=== PATIENT | female | born 1990 | race Caucasian/White ===

== ENCOUNTER 2016-07-29 21:44 | Inpatient (IN) | payer OTHER ==
[~2016-07-29 21:44] MED LIST: Misoprostol 25 MCG (1/4 of 100 MCG) Tab VAG PRN
[2016-07-29] MEDS ORDERED: Lidocaine 1% 50 ML MDV INJECT PRN (22:16)
[2016-07-29] MEDS ORDERED: Butorphanol 1 MG/ML SDV IVPUSH PRN (22:16)
[2016-07-29] MEDS ORDERED: Sodium Chloride 0.9% 2.5 ML Syringe FLUSH PRN (22:16)
[2016-07-29] MEDS ORDERED: Water For Irrigation,Sterile 1,000 ML Container IRR PRN (22:16)
[2016-07-29] MEDS ORDERED: Methylergonovine 0.2 MG/1 ML Amp IM PRN (22:16)
[2016-07-29] MEDS ORDERED: Nalbuphine 10 MG/1 ML Vial IVPUSH PRN (22:16)
[2016-07-29] MEDS ORDERED: Terbutaline 1 MG/ML SDV SUBCUT PRN (22:16)
[2016-07-29] MEDS ORDERED: Sodium Chloride 0.9% 10 ML Syringe FLUSH PRN (22:16)
[2016-07-29] MEDS ORDERED: Carboprost Tromethamine 250 MCG/1 ML Amp IM PRN (22:16)
[2016-07-29] MEDS ORDERED: Misoprostol 200 MCG Tab PO PRN (22:16)
[2016-07-29] MEDS ORDERED: Ampicillin 2 GM in Sodium Chloride 0.9% 100 ML IV ONE (22:30)
[2016-07-29] MEDS ORDERED: Misoprostol 25 MCG (1/4 of 100 MCG) Tab VAG SCH (22:30)
[2016-07-29] MEDS ORDERED: Oxytocin/Lactated Ringers 30 UNIT/500 ML BAG IV SCH (22:30)
[2016-07-29] MEDS: Lactated Ringers 1,000 ML IV SCH (22:41)
[2016-07-30] MEDS: Ampicillin 1 GM in Sodium Chloride 0.9% 50 ML IV SCH ×5 (00:59→10:39)
[2016-07-30] MEDS: Lactated Ringers 1,000 ML IV SCH ×4 (07:45→16:01)
[2016-07-30] MEDS ORDERED: Ropivacaine HCl/PF 100 ML ONE (08:15)
[2016-07-30] MEDS ORDERED: fentaNYL 100 MCG/2 ML SDV ONE (08:15)
--- NOTE | 2016-07-30 08:19 | PCM.PREANE ---
Preanesthetic Assessment - Anesthesia/Transfusion/Family Hx Anesthesia History: Prior Anesthesia Without Reaction Transfusion History: Prior Transfusion Without Reaction - Review of Systems General: No Symptoms Pulmonary: No Symptoms Cardiovascular: No Symptoms Gastrointestinal: No symptoms Neurological: No Symptoms Other: Reports: None - Physical Assessment Pulse: 105 O2 Sat by Pulse Oximetry: 99 Respiratory Rate: 26 Blood Pressure: 160/100 Height: 5 ft 9 in Weight: 74.389 kg ASA Class: 2 Mental Status: Alert & Oriented x3 Airway Class: Mallampati = 2 Dentition: Reports: Normal Dentition Thyro-Mental Finger Breadths: 3 Mouth Opening Finger Breadths: 3 ROM/Head Extension: Full Lungs: Clear to auscultation, Normal respiratory effort Cardiovascular: Regular Rate, Regular Rhythm - Lab Values: Laboratory Last Values WBC 9.24 K/uL (4.0-11.0) 07/29/16 22:34 RBC 4.03 M/uL (4.30-5.90) L 07/29/16 22:34 Hgb 12.0 g/dL (12.0-16.0) 07/29/16 22:34 Hct 37.1 % (36.0-46.0) 07/29/16 22:34 MCV 92.1 fL (80.0-98.0) 07/29/16 22:34 MCH 29.8 pg (27.0-32.0) 07/29/16 22:34 MCHC 32.3 g/dL (31.0-37.0) 07/29/16 22:34 RDW Std Deviation 44.2 fl (28.0-62.0) 07/29/16 22:34 RDW Coeff of Cruz 13 % (11.0-15.0) 07/29/16 22:34 Plt Count 162 K/uL (150-400) 07/29/16 22:34 MPV 11.00 fL (7.40-12.00) 07/29/16 22:34 Nucleated RBC % 0.0 /100WBC 07/29/16 22:34 Nucleated RBCs # 0 K/uL 07/29/16 22:34 Blood Type O POSITIVE 07/29/16 22:34 Antibody Screen NEGATIVE 07/29/16 22:34 - Allergies Allergies/Adverse Reactions: Allergies Allergy/AdvReac Type Severity Reaction Status Date / Time No Known Allergies Allergy Verified 07/29/16 22:16 - Acknowledgements Anesthesia Type Planned: Epidural Pt an Appropriate Candidate for the Planned Anesthesia: Yes Alternatives and Risks of Anesthesia Discussed w Pt/Guardian: Yes Pt/Guardian Understands and Agrees with Anesthesia Plan: Yes PreAnesthesia Questionnaire HEENT History: Reports: None Cardiovascular History: Reports: None Respiratory History: Reports: None Gastrointestinal History: Reports: GERD Genitourinary History: Reports: None CAUSTIC MIXER History: Reports: : 1 Para: 0 LMP (Approximate): Musculoskeletal History: Reports: None Neurological History: Reports: None Psychiatric History: Reports: None Endocrine/Metabolic History: Reports: None Hematologic History: Reports: None Immunologic History: Reports: None Oncologic (Cancer) History: Reports: None - Past Surgical History HEENT Surgical History: Reports: Oral surgery ([place] teeth extraction), Tonsillectomy - CURRENT (IN HOUSE) MEDS Current Meds: Current Medications Butorphanol Tartrate (Stadol) 1 mg IVPUSH ASDIRECTED PRN PRN Reason: Pain Stop: 07/30/16 22:17 Last Admin: 07/30/16 07:58 Dose: 1 mg Carboprost Tromethamine (Hemabate Ds) 250 mcg IM ASDIRECTED PRN PRN Reason: Post Hemorrhage Ampicillin Sodium 1 gm/ Sodium (Chloride) 50 mls @ 100 mls/hr IV Q4H IGGY Last Admin: 07/30/16 06:40 Dose: 100 mls/hr Lactated Ringer's (Ringers, Lactated) 1,000 mls @ 150 mls/hr IV ASDIRECTED IGGY Last Admin: 07/30/16 07:45 Dose: 150 mls/hr Oxytocin/Lactated Ringer's (Pitocin In Lr 30 Units/500 Ml) 30 unit in 500 mls @ 2 mls/hr IV TITRATE IGGY; 2 MUNITS/MIN PRN Reason: Protocol Lidocaine HCl (Xylocaine 1%) 50 ml INJECT .ONCE PRN PRN Reason: Laceration repair Methylergonovine Maleate (Methergine) 0.2 mg IM ASDIRECTED PRN PRN Reason: Post Hemorrhage Misoprostol (Cytotec) 25 mcg VAG .ONCE IGGY Last Admin: 07/29/16 23:07 Dose: 25 mcg Misoprostol (Cytotec) 25 mcg VAG Q6H PRN PRN Reason: Cervical Ripening Stop: 07/30/16 22:31 Last Admin: 07/30/16 05:04 Dose: 25 mcg Misoprostol (Cytotec) 200 mcg PO .ONCE PRN PRN Reason: Post Hemorrhage Nalbuphine HCl (Nubain) 10 mg IVPUSH ASDIRECTED PRN PRN Reason: Pain (severe 7-10) Stop: 07/31/16 22:17 Sodium Chloride (Saline Flush) 10 ml FLUSH ASDIRECTED PRN PRN Reason: Keep Vein Open Sodium Chloride (Saline Flush) 2.5 ml FLUSH ASDIRECTED PRN PRN Reason: Keep Vein Open Sterile Water (Sterile Water For Irrigation) 1,000 ml IRR ASDIRECTED PRN PRN Reason: delivery Terbutaline Sulfate (Brethine) 0.25 mg SUBCUT ASDIRECTED PRN PRN Reason: Tacysystole Discontinued Medications Ampicillin Sodium 2 gm/ Sodium (Chloride) 100 mls @ 200 mls/hr IV ONETIME ONE Stop: 07/29/16 22:59 Last Admin: 07/29/16 22:46 Dose: 200 mls/hr Oxytocin/Lactated Ringer's (Pitocin In Lr 30 Units/500 Ml) 30 unit in 500 mls @ 500 mls/hr IV TITRATE IGGY; 500 MUNITS/MIN PRN Reason: Protocol Stop: 07/29/16 23:29
[2016-07-30] MEDS: Oxytocin/Lactated Ringers 30 UNIT/500 ML BAG IV SCH ×3 (12:01→14:49)
[2016-07-30] MEDS ORDERED: Witch Hazel Medicated Pads 40/Jar TOP PRN (12:24)
[2016-07-30] MEDS ORDERED: Lanolin 100% Cream 7 GM Tube TOP PRN (12:24)
[2016-07-30] MEDS ORDERED: Methylergonovine 0.2 MG/1 ML Amp IM PRN (12:24)
[2016-07-30] MEDS ORDERED: Benzocaine/Menthol 20%-0.5% Spray 78 GM Cannister TOP PRN (12:24)
[2016-07-30] MEDS ORDERED: oxyCODONE 5 MG Tab PO PRN (12:24)
[2016-07-30] MEDS ORDERED: Bisacodyl 10 MG Supp RECTAL PRN (12:24)
[2016-07-30] MEDS ORDERED: Oxytocin/Lactated Ringers 30 UNIT/500 ML BAG ONE ×2 (14:46→15:44)
[2016-07-30] MEDS ORDERED: Carboprost Tromethamine 250 MCG/1 ML Amp ONE (15:54)
[2016-07-30] MEDS ORDERED: ceFAZolin 2 GM in Premix Bag 1 BAG IV ONE (15:58)
[2016-07-30] MEDS ORDERED: Lidocaine 2% 5 ML SDV ONE (16:06)
[2016-07-30] MEDS ORDERED: Midazolam 1 MG/ML 2 ML SDV ONE (16:06)
[2016-07-30] MEDS ORDERED: Propofol 200 MG/20 ML SDV ONE (16:06)
[2016-07-30] MEDS ORDERED: fentaNYL 250 MCG/5 ML SDV ONE (16:06)
[2016-07-30] MEDS ORDERED: Ondansetron 4 MG/2 ML SDV ONE (16:06)
[2016-07-30] MEDS ORDERED: Rocuronium 10 MG/ML 10 ML Syringe ONE (16:06)
[2016-07-30] MEDS ORDERED: Phenylephrine/Normal Saline 100 MCG/ML 10 ML Syringe ONE (16:06)
[2016-07-30] MEDS ORDERED: Succinylcholine/Normal Saline 200 MG/10 ML Syringe ONE (16:06)
[2016-07-30] MEDS ORDERED: Sodium Chloride 0.9% 0 ML ONE (16:17)
[2016-07-30] MEDS ORDERED: ceFAZolin 1 GM Vial ONE (16:17)
[2016-07-30] MEDS ORDERED: ePHEDrine 50 MG/ML SDV ONE (16:18)
[2016-07-30] MEDS ORDERED: Phenylephrine 1% 10 MG/ML SDV ONE (16:19)
[2016-07-30] MEDS ORDERED: Furosemide 40 MG/4 ML VIAL ONE (16:54)
--- NOTE | 2016-07-30 17:33 | PCM.OPNOTE ---
- General Post-Op/Procedure Note Date of Surgery/Procedure: 07/30/16 Operative Procedure(s): uterine curettage, evacuation of rectovaginal hematoma with hemostasis, repair of 2nd degree laceration Findings: Uterus was firm 14 week size, good uterine cry was felt. There was a 5 cm mass on the posterior vagina, which was a hematoma in the rectovaginal septum, it had ruptured through the vagina transversely approximately 5 cm cephalad from the introitus. The second degree laceration which had been repaired was opened and explored, and re-repaired. It had not connection to the hematoma. Pre Op Diagnosis: hemorrhage Post-Op Diagnosis: rectovaginal hematoma Anesthesia Technique: General ET tube Primary Surgeon: Mallory Cuevas Anesthesia Provider: Jeovanny Ruiz Pathology: none Fluid Replacement, Intraop: 1,500 (2 Units PRBC) EBL in mLs: 100 (800 prior to procedure) Complications: None Known Condition: Good
[2016-07-30] MEDS ORDERED: fentaNYL 100 MCG/2 ML SDV IVPUSH PRN (17:45)
--- NOTE | 2016-07-30 17:46 | PCM.POSTAN ---
POST ANESTHESIA ASSESSMENT - MENTAL STATUS Mental Status: alert, oriented - VITAL SIGNS Pulse Rate: 118 SaO2: 98 Resp Rate: 22 Blood Pressure: 135/75 - RESPIRATORY Respiratory Status: respiratory rate WNL, airway patent, O2 saturation stable - CARDIOVASCULAR CV Status: pulse rate WNL, blood pressure stable - GASTROINTESTINAL GI Status: no symptoms - POST OP HYDRATION Hydration Status: adequate & stable
[2016-07-30] MEDS: Ibuprofen 800 MG Tab PO PRN (18:31)
[2016-07-30] MEDS ORDERED: Acetaminophen 500 MG Tab PO PRN (20:08)
[2016-07-30] MEDS: Docusate Sodium 100 MG Cap PO PRN (20:32)
--- NOTE | 2016-07-30 21:01 | PCM.SN ---
- Free Text/Narrative Note: PPD0 after TSVD with hematoma , pain is mild, she is still a bit nauseated, minimal lochia fundus firm, nontender, vaginal packing removed, no vaginal bleeding Hgb 11.3 Continue care, recheck hemoglobin in am.
--- NOTE | 2016-07-30 22:48 | PCM.SN ---
- Free Text/Narrative Note: Pt has mild pain, using non-narcotics at this time as pt says narcotics "make me sick". Hgb 11.3 after 2 units PRBC. Pt did require vasoactive support intra -op, VSS at this time.
[2016-07-31] MEDS: Ibuprofen 800 MG Tab PO PRN ×3 (00:32→16:32)
--- NOTE | 2016-07-31 07:24 | PCM.PNPP ---
- General Info Date of Service: 07/31/16 Functional Status: Reports: pain controlled, tolerating diet, ambulating. Denies: urinating (catheter still in place) - Review of Systems General: Reports: No Symptoms HEENT: Reports: no symptoms Pulmonary: Reports: no symptoms Cardiovascular: Reports: No Symptoms Gastrointestinal: Reports: No symptoms Genitourinary: Reports: no symptoms Musculoskeletal: Reports: no symptoms Skin: Reports: no symptoms Neurological: Reports: No Symptoms Psychiatric: Reports: no symptoms - General Info Date of Service: 07/31/16 - Patient Data Vital Signs - most recent: Last Vital Signs Temp 36.7 C 07/30/16 19:58 Pulse 98 07/31/16 03:56 Resp 16 07/31/16 03:56 BP 115/58 L 07/31/16 03:56 Pulse Ox 97 07/31/16 03:56 Weight - most recent: 74.389 kg I&O - last 24 hours: Intake & Output 07/30/16 07/31/16 07/31/16 22:59 06:59 14:59 Intake Total 3200 Output Total 600 Balance 2600 Lab Results - last 24 hrs: Laboratory Results - last 24 hr 07/29/16 07/30/16 07/30/16 Range/Units 22:34 16:04 16:04 Hgb (12.0-16.0) g/dL Hct (36.0-46.0) % INR (0.86-1.11) APTT 22.2 (18.6-31.3) SEC Fibrinogen 328 (215-411) mg/dL Blood Type O POSITIVE Antibody Screen NEGATIVE Crossmatch See Detail 07/30/16 07/30/16 07/30/16 Range/Units 16:04 16:04 20:14 Hgb 9.3 L 11.1 L (12.0-16.0) g/dL Hct 28.6 L 32.8 L (36.0-46.0) % INR 0.97 (0.86-1.11) APTT (18.6-31.3) SEC Fibrinogen (215-411) mg/dL Blood Type Antibody Screen Crossmatch 07/31/16 Range/Units 05:10 Hgb 8.9 L (12.0-16.0) g/dL Hct 26.6 L (36.0-46.0) % INR (0.86-1.11) APTT (18.6-31.3) SEC Fibrinogen (215-411) mg/dL Blood Type Antibody Screen Crossmatch Med Orders - Current: Current Medications Acetaminophen (Tylenol Extra Strength) 1,000 mg PO Q6H PRN PRN Reason: Pain (moderate 4-6) Last Admin: 07/30/16 20:33 Dose: 1,000 mg Benzocaine/Menthol (Dermoplast Pain Relief 20%-0.5% [place]) 78 gm TOP ASDIRECTED PRN PRN Reason: Perineal Comfort Measure Bisacodyl (Dulcolax) 10 mg RECTAL .ONCE PRN PRN Reason: Constipation Docusate Sodium (Colace) 100 mg PO BID PRN PRN Reason: Constipation Last Admin: 07/30/16 20:32 Dose: 100 mg Emollient Ointment (Lansinoh Hpa) 0 gm TOP ASDIRECTED PRN PRN Reason: Sore Nipples Fentanyl (Sublimaze) 50 mcg IVPUSH Q5M PRN PRN Reason: Pain (severe 7-10) Stop: 07/31/16 17:45 Ibuprofen (Motrin) 800 mg PO Q6H PRN PRN Reason: Pain Last Admin: 07/31/16 00:32 Dose: 800 mg Methylergonovine Maleate (Methergine) 0.2 mg IM .ONCE PRN PRN Reason: Excessive Vaginal Bleeding Last Admin: 07/30/16 15:00 Dose: 0.2 mg Oxycodone HCl (Oxycodone) 5 mg PO Q2H PRN PRN Reason: Pain Witch Katie (Tucks) 1 pad TOP ASDIRECTED PRN PRN Reason: comfort care Discontinued Medications Butorphanol Tartrate (Stadol) 1 mg IVPUSH ASDIRECTED PRN PRN Reason: Pain Stop: 07/30/16 22:17 Last Admin: 07/30/16 07:58 Dose: 1 mg Carboprost Tromethamine (Hemabate Ds) 250 mcg IM ASDIRECTED PRN PRN Reason: Post Hemorrhage Last Admin: 07/30/16 15:59 Dose: 250 mcg Carboprost Tromethamine (Hemabate Ds) Confirm Administered Dose 250 mcg .ROUTE .STK-MED ONE Stop: 07/30/16 15:55 Fentanyl (Sublimaze) Confirm Administered Dose 100 mcg .ROUTE .STK-MED ONE Stop: 07/30/16 08:16 Ampicillin Sodium 2 gm/ Sodium (Chloride) 100 mls @ 200 mls/hr IV ONETIME ONE Stop: 07/29/16 22:59 Last Admin: 07/29/16 22:46 Dose: 200 mls/hr Ampicillin Sodium 1 gm/ Sodium (Chloride) 50 mls @ 100 mls/hr IV Q4H IGGY Last Admin: 07/30/16 10:39 Dose: 100 mls/hr Lactated Ringer's (Ringers, Lactated) 1,000 mls @ 150 mls/hr IV ASDIRECTED IGGY Last Admin: 07/30/16 16:01 Dose: 150 mls/hr Oxytocin/Lactated Ringer's (Pitocin In Lr 30 Units/500 Ml) 30 unit in 500 mls @ 2 mls/hr IV TITRATE IGGY; 2 MUNITS/MIN PRN Reason: Protocol Oxytocin/Lactated Ringer's (Pitocin In Lr 30 Units/500 Ml) 30 unit in 500 mls @ 500 mls/hr IV TITRATE IGGY; 500 MUNITS/MIN PRN Reason: Protocol Stop: 07/29/16 23:29 Last Titration: 07/30/16 14:59 Dose: 500 munits/min, 500 mls/hr Ropivacaine (Naropin 0.2%) Confirm Administered Dose 100 mls @ as directed .ROUTE .STK-MED ONE Stop: 07/30/16 08:16 Oxytocin/Lactated Ringer's (Pitocin In Lr 30 Units/500 Ml) Confirm Administered Dose 30 unit in 500 mls @ as directed .ROUTE .STK-MED ONE Stop: 07/30/16 14:47 Oxytocin/Lactated Ringer's (Pitocin In Lr 30 Units/500 Ml) Confirm Administered Dose 30 unit in 500 mls @ as directed .ROUTE .STK-MED ONE Stop: 07/30/16 15:45 Last Admin: 07/30/16 16:00 Dose: 1 unit Cefazolin Sodium/Dextrose 2 gm (/ Premix) 50 mls @ 100 mls/hr IV ONETIME ONE Stop: 07/30/16 16:27 Lidocaine HCl (Xylocaine 1%) 50 ml INJECT .ONCE PRN PRN Reason: Laceration repair Methylergonovine Maleate (Methergine) 0.2 mg IM ASDIRECTED PRN PRN Reason: Post Hemorrhage Misoprostol (Cytotec) 25 mcg VAG .ONCE IGGY Last Admin: 07/29/16 23:07 Dose: 25 mcg Misoprostol (Cytotec) 25 mcg VAG Q6H PRN PRN Reason: Cervical Ripening Stop: 07/30/16 22:31 Last Admin: 07/30/16 05:04 Dose: 25 mcg Misoprostol (Cytotec) 200 mcg PO .ONCE PRN PRN Reason: Post Hemorrhage Nalbuphine HCl (Nubain) 10 mg IVPUSH ASDIRECTED PRN PRN Reason: Pain (severe 7-10) Stop: 07/31/16 22:17 Sodium Chloride (Saline Flush) 10 ml FLUSH ASDIRECTED PRN PRN Reason: Keep Vein Open Sodium Chloride (Saline Flush) 2.5 ml FLUSH ASDIRECTED PRN PRN Reason: Keep Vein Open Sterile Water (Sterile Water For Irrigation) 1,000 ml IRR ASDIRECTED PRN PRN Reason: delivery Terbutaline Sulfate (Brethine) 0.25 mg SUBCUT ASDIRECTED PRN PRN Reason: Tacysystole - Infant Interaction Disposition, : [place] in Room with Family Interaction: Holding Feeding: Breastfed ; Nursed Well Support Person: - Recovery Exam Fundal Tone: Firm Fundal Level: 1 Fingerbreadths Below Umbilicus Fundal Placement: Midline Lochia Amount: Scant Lochia Color: Rubra/Red Perineum Description: Intact, Minimal Bruising/Swelling Episiotomy/Laceration: Approximated Bladder Status: Indwelling Catheter in Place Urinary Elimination: Indwelling Catheter - Exam General: alert, oriented HEENT: Pupils equal Neck: supple Abdomen: soft, no tenderness, no distension Extremities: no edema Skin: warm, dry, intact Wound/Incisions: healing well Neurological: no new focal deficit Psy/Mental Status: alert, normal affect, normal mood - Problem List & Annotations (1) Vaginal delivery SNOMED Code(s): 239192570 Code(s): O80 - ENCOUNTER FOR FULL-TERM UNCOMPLICATED DELIVERY Status: Acute Current Visit: Yes (2) Hematoma of vagina during delivery SNOMED Code(s): 41174816 Code(s): O71.7 - OBSTETRIC HEMATOMA OF PELVIS Status: Acute Current Visit : Yes - Problem List Review Problem List Initiated/Reviewed/Updated: Yes - My Orders Last 24 Hours: My Active Orders 07/30/16 12:24 Patient Status [ADT] Routine May Shower [RC] ASDIRECTED Up ad Mitra [RC] ASDIRECTED Vital Signs [RC] PER UNIT ROUTINE Benzocaine/Menthol [Dermoplast Pain Relief 20%-0.5% [place]] 78 gm TOP ASDIRECTED PRN Bisacodyl [Dulcolax] 10 mg RECTAL .ONCE PRN Docusate Sodium [Colace] 100 mg PO BID PRN Ibuprofen [Motrin] 800 mg PO Q6H PRN Lanolin [Lansinoh HPA] See Dose Instructions TOP ASDIRECTED PRN Methylergonovine [Methergine] 0.2 mg IM .ONCE PRN Witch Katie [Tucks] 1 pad TOP ASDIRECTED PRN oxyCODONE 5 mg PO Q2H PRN Assess Lochia [WOMSER] Per Unit Routine Assess Uterine Involution [WOMSER] Per Unit Routine Perineal Care [OM.PC] Per Unit Routine Peripheral IV Discontinue [OM.PC] Routine Resuscitation Status Routine 07/30/16 15:50 RED BLOOD CELLS LP [BBK] Stat 07/30/16 20:08 Acetaminophen [Tylenol Extra Strength] 1,000 mg PO Q6H PRN 07/30/16 Dinner Regular Diet [DIET] 07/31/16 15:00 HEMOGLOBIN/HEMATOCRIT,HH [HEME] Routine - Assessment Assessment:: PPD#1 after , comlicated by hermorrhage due to hematoma of rectovaginal septum. She is stable, denies complaints, well. I have reviewed sequence of events with she and her . I had discussed the likelihood of further drop in blood counts due to fluid shifts. She is not actively bleeding. - Plan Plan:: Continue care, remove landis catheter, may ambulate and shower with assist, recheck H&H at 3 pm.
[2016-07-31] MEDS: Docusate Sodium 100 MG Cap PO PRN (10:45)
--- NOTE | 2016-07-31 22:21 | PCM48HPAN ---
Post Anesthesia Note - EVALUATION WITHIN 48HRS OF ANESTHETIC Vital Signs in Normal Range: Yes Patient Participated in Evaluation: Yes Respiratory Function Stable: Yes Airway Patent: Yes Cardiovascular Function Stable: Yes Hydration Status Stable: Yes Pain Control Satisfactory: Yes Nausea and Vomiting Control Satisfactory: Yes Mental Status Recovered: Yes
[2016-08-01] MEDS: Ibuprofen 800 MG Tab PO PRN (07:59)
[2016-08-01] MEDS: Docusate Sodium 100 MG Cap PO PRN (07:59)
--- NOTE | 2016-08-01 09:40 | PCM.PNPP ---
- General Info Date of Service: 08/01/16 Functional Status: Reports: pain controlled, tolerating diet, ambulating, urinating, other (she has had very scant lochia, no pain in vaginal area, slight pain on perium, denies dizziness or shortness of breath with ambulation.) - Review of Systems General: Reports: No Symptoms HEENT: Reports: no symptoms Pulmonary: Reports: no symptoms Cardiovascular: Reports: No Symptoms Gastrointestinal: Reports: No symptoms Genitourinary: Reports: no symptoms Musculoskeletal: Reports: no symptoms Skin: Reports: no symptoms Neurological: Reports: No Symptoms Psychiatric: Reports: no symptoms - Patient Data Vital Signs - most recent: Last Vital Signs Temp 36.5 C 08/01/16 07:46 Pulse 85 08/01/16 07:46 Resp 14 08/01/16 07:46 BP 99/58 L 08/01/16 07:46 Pulse Ox 100 08/01/16 07:46 Weight - most recent: 74.389 kg Lab Results - last 24 hrs: Laboratory Results - last 24 hr 07/31/16 08/01/16 Range/Units 14:59 06:15 WBC 7.54 (4.0-11.0) K/uL RBC 2.50 L (4.30-5.90) M/uL Hgb 8.1 L 7.4 L (12.0-16.0) g/dL Hct 23.9 L 22.3 L (36.0-46.0) % MCV 89.2 (80.0-98.0) fL MCH 29.6 (27.0-32.0) pg MCHC 33.2 (31.0-37.0) g/dL RDW Std Deviation 49.0 (28.0-62.0) fl RDW Coeff of Cruz 15 (11.0-15.0) % Plt Count 150 (150-400) K/uL MPV 10.00 (7.40-12.00) fL Nucleated RBC % 0.0 /100WBC Nucleated RBCs # 0 K/uL Med Orders - Current: Current Medications Acetaminophen (Tylenol Extra Strength) 1,000 mg PO Q6H PRN PRN Reason: Pain (moderate 4-6) Last Admin: 07/30/16 20:33 Dose: 1,000 mg Benzocaine/Menthol (Dermoplast Pain Relief 20%-0.5% [place]) 78 gm TOP ASDIRECTED PRN PRN Reason: Perineal Comfort Measure Last Admin: 07/31/16 16:32 Dose: 1 canister Bisacodyl (Dulcolax) 10 mg RECTAL .ONCE PRN PRN Reason: Constipation Docusate Sodium (Colace) 100 mg PO BID PRN PRN Reason: Constipation Last Admin: 08/01/16 07:59 Dose: 100 mg Emollient Ointment (Lansinoh Hpa) 0 gm TOP ASDIRECTED PRN PRN Reason: Sore Nipples Ibuprofen (Motrin) 800 mg PO Q6H PRN PRN Reason: Pain Last Admin: 08/01/16 07:59 Dose: 800 mg Methylergonovine Maleate (Methergine) 0.2 mg IM .ONCE PRN PRN Reason: Excessive Vaginal Bleeding Last Admin: 07/30/16 15:00 Dose: 0.2 mg Oxycodone HCl (Oxycodone) 5 mg PO Q2H PRN PRN Reason: Pain Witch Katie (Tucks) 1 pad TOP ASDIRECTED PRN PRN Reason: comfort care Last Admin: 07/31/16 10:44 Dose: 1 applic Discontinued Medications Butorphanol Tartrate (Stadol) 1 mg IVPUSH ASDIRECTED PRN PRN Reason: Pain Stop: 07/30/16 22:17 Last Admin: 07/30/16 07:58 Dose: 1 mg Carboprost Tromethamine (Hemabate Ds) 250 mcg IM ASDIRECTED PRN PRN Reason: Post Hemorrhage Last Admin: 07/30/16 15:59 Dose: 250 mcg Carboprost Tromethamine (Hemabate Ds) Confirm Administered Dose 250 mcg .ROUTE .STK-MED ONE Stop: 07/30/16 15:55 Cefazolin Sodium (Ancef) Confirm Administered Dose 1 gm .ROUTE .STK-MED ONE Stop: 07/30/16 16:18 Ephedrine Sulfate (Ephedrine Sulfate) Confirm Administered Dose 50 mg .ROUTE .STK-MED ONE Stop: 07/30/16 16:19 Fentanyl (Sublimaze) Confirm Administered Dose 100 mcg .ROUTE .STK-MED ONE Stop: 07/30/16 08:16 Fentanyl (Sublimaze) 50 mcg IVPUSH Q5M PRN PRN Reason: Pain (severe 7-10) Stop: 07/31/16 17:45 Fentanyl (Sublimaze) Confirm Administered Dose 250 mcg .ROUTE .STK-MED ONE Stop: 07/30/16 16:07 Furosemide (Lasix) Confirm Administered Dose 40 mg .ROUTE .STK-MED ONE Stop: 07/30/16 16:55 Glycopyrrolate () Confirm Administered Dose 1 mg .ROUTE .STK-MED ONE Stop: 07/30/16 16:07 Ampicillin Sodium 2 gm/ Sodium (Chloride) 100 mls @ 200 mls/hr IV ONETIME ONE Stop: 07/29/16 22:59 Last Admin: 07/29/16 22:46 Dose: 200 mls/hr Ampicillin Sodium 1 gm/ Sodium (Chloride) 50 mls @ 100 mls/hr IV Q4H IGGY Last Admin: 07/30/16 10:39 Dose: 100 mls/hr Lactated Ringer's (Ringers, Lactated) 1,000 mls @ 150 mls/hr IV ASDIRECTED IGGY Last Admin: 07/30/16 16:01 Dose: 150 mls/hr Oxytocin/Lactated Ringer's (Pitocin In Lr 30 Units/500 Ml) 30 unit in 500 mls @ 2 mls/hr IV TITRATE IGGY; 2 MUNITS/MIN PRN Reason: Protocol Oxytocin/Lactated Ringer's (Pitocin In Lr 30 Units/500 Ml) 30 unit in 500 mls @ 500 mls/hr IV TITRATE IGGY; 500 MUNITS/MIN PRN Reason: Protocol Stop: 07/29/16 23:29 Last Titration: 07/30/16 14:59 Dose: 500 munits/min, 500 mls/hr Ropivacaine (Naropin 0.2%) Confirm Administered Dose 100 mls @ as directed .ROUTE .STK-MED ONE Stop: 07/30/16 08:16 Oxytocin/Lactated Ringer's (Pitocin In Lr 30 Units/500 Ml) Confirm Administered Dose 30 unit in 500 mls @ as directed .ROUTE .STK-MED ONE Stop: 07/30/16 14:47 Oxytocin/Lactated Ringer's (Pitocin In Lr 30 Units/500 Ml) Confirm Administered Dose 30 unit in 500 mls @ as directed .ROUTE .STK-MED ONE Stop: 07/30/16 15:45 Last Admin: 07/30/16 16:00 Dose: 1 unit Cefazolin Sodium/Dextrose 2 gm (/ Premix) 50 mls @ 100 mls/hr IV ONETIME ONE Stop: 07/30/16 16:27 Sodium Chloride (Normal Saline) Confirm Administered Dose 20 mls @ as directed .ROUTE .STK-MED ONE Stop: 07/30/16 16:18 Lidocaine (Xylocaine-Mpf 2%) Confirm Administered Dose 5 ml .ROUTE .STK-MED ONE Stop: 07/30/16 16:07 Lidocaine HCl (Xylocaine 1%) 50 ml INJECT .ONCE PRN PRN Reason: Laceration repair Methylergonovine Maleate (Methergine) 0.2 mg IM ASDIRECTED PRN PRN Reason: Post Hemorrhage Midazolam HCl (Versed 1 Mg/Ml) Confirm Administered Dose 2 mg .ROUTE .STK-MED ONE Stop: 07/30/16 16:07 Misoprostol (Cytotec) 25 mcg VAG .ONCE IGGY Last Admin: 07/29/16 23:07 Dose: 25 mcg Misoprostol (Cytotec) 25 mcg VAG Q6H PRN PRN Reason: Cervical Ripening Stop: 07/30/16 22:31 Last Admin: 07/30/16 05:04 Dose: 25 mcg Misoprostol (Cytotec) 200 mcg PO .ONCE PRN PRN Reason: Post Hemorrhage Nalbuphine HCl (Nubain) 10 mg IVPUSH ASDIRECTED PRN PRN Reason: Pain (severe 7-10) Stop: 07/31/16 22:17 Ondansetron HCl (Zofran) Confirm Administered Dose 4 mg .ROUTE .STK-MED ONE Stop: 07/30/16 16:07 Phenylephrine HCl (Phenylephrine In Ns 100 Mcg/Ml) Confirm Administered Dose 1 mg .ROUTE .STK-MED ONE Stop: 07/30/16 16:07 Phenylephrine HCl (Antoine-Synephrine) Confirm Administered Dose 10 mg .ROUTE .STK- MED ONE Stop: 07/30/16 16:20 Propofol (Diprivan 20 Ml) Confirm Administered Dose 200 mg .ROUTE .STK-MED ONE Stop: 07/30/16 16:07 Rocuronium [place] (Zemuron) Confirm Administered Dose 100 mg .ROUTE .STK-MED ONE Stop: 07/30/16 16:07 Sodium Chloride (Saline Flush) 10 ml FLUSH ASDIRECTED PRN PRN Reason: Keep Vein Open Sodium Chloride (Saline Flush) 2.5 ml FLUSH ASDIRECTED PRN PRN Reason: Keep Vein Open Sterile Water (Sterile Water For Irrigation) 1,000 ml IRR ASDIRECTED PRN PRN Reason: delivery Succinylcholine Chloride (Succinylcholine In Ns Pf) Confirm Administered Dose 200 mg .ROUTE .STK-MED ONE Stop: 07/30/16 16:07 Terbutaline Sulfate (Brethine) 0.25 mg SUBCUT ASDIRECTED PRN PRN Reason: Tacysystole - Infant Interaction Infant Disposition, : [place] in Room with Family Interaction: Holding Infant Feeding: Breastfed ; Nursed Well Support Person: - Recovery Exam Fundal Tone: Firm Fundal Level: 2 Fingerbreadths Above Umbilicus Fundal Placement: Midline Lochia Amount: Scant Lochia Color: Rubra/Red Perineum Description: Edematous Episiotomy/Laceration: Approximated Bladder Status: Voiding Urinary Elimination: Not Voiding - Exam General: alert, oriented HEENT: Pupils equal Neck: supple Lungs: Normal respiratory effort Abdomen: soft, no tenderness, no distension Extremities: No: no edema (trace) Skin: warm, dry, intact Wound/Incisions: healing well, other (perineum intact with minimal swelling. vaginal exam reveals posterior wall of vagina intact, no reaccumulation of hematoma) Neurological: no new focal deficit Psy/Mental Status: alert, normal affect, normal mood - Problem List & Annotations (1) Vaginal delivery SNOMED Code(s): 123856281 Code(s): O80 - ENCOUNTER FOR FULL-TERM UNCOMPLICATED DELIVERY Status: Acute Current Visit: Yes (2) Hematoma of vagina during delivery SNOMED Code(s): 06611820 Code(s): O71.7 - OBSTETRIC HEMATOMA OF PELVIS Status: Acute Current Visit : Yes - Problem List Review Problem List Initiated/Reviewed/Updated: Yes - Assessment Assessment:: PPD#2after , comlicated by hermorrhage due to hematoma of rectovaginal septum. She is stable, denies complaints, well. She has had minimal lochia and no active bleeding, she is asymptomatic with anemia and would like to take iron after discharge. Transfusion offered but not recommended due to absence of symptoms. - Plan Plan:: Dismiss to home, discussed need for good iron supplement and to continue vitamin. She has been taking gummy vitamin, she will look into a better quality vitamin. Discussed stool softerner. Routine precautions reviewed as well.
[2016-08-01 11:15] VITALS: BP 127/66
--- NOTE | 2016-08-02 06:26 | OR ---
SURGEON: Mallory Cuevas M.D. DATE OF PROCEDURE: PREOPERATIVE DIAGNOSIS: 40 and 5/7th week intrauterine for postdates induction. POSTOPERATIVE DIAGNOSIS: 40 and 5/7th week intrauterine for postdates induction. PROCEDURE: Cytotec induction of labor with term spontaneous vaginal delivery, second-degree repair of secondary laceration. ANESTHESIA: Epidural. ESTIMATED BLOOD LOSS: Less than 300 mL. FINDINGS: Live born female, score 9 and 9. Weight is pending at the time of dictation. Second-degree perineal laceration repaired, placenta spontaneous, Schultze intact with 3 vessels. COMPLICATIONS: None known. DISPOSITION: Mother and baby are in LDRP in good condition. INDICATION: This is a 26-year-old female, G1, P0. She presents at 40 and 5/7th weeks' gestation for induction of labor. Cervix initially was fingertip and 50%. She received 2 doses of Cytotec. She began to have regular contractions, by morning she was 5 cm dilated. She received an epidural for pain control. She had artificial rupture of membranes with clear fluid, when she was approximately 9 cm dilated. She then progressed to complete with category 1 and occasional episodes of category 2 heart tones with a baseline in the 110s to 120s. PROCEDURE: With the patient in dorsal lithotomy position, the patient pushed over 30 minute time period to a 5+ station, at which time the head was delivered spontaneously and atraumatically over the perineum with support with subsequent delivery of the 's shoulders and body without any difficulty. The was bulb suctioned by nose and mouth. Cord was clamped x2 and cut and the infant was handed to the mother in the presence of the nurse attending delivery. The was a liveborn female, score 9 and 9. Weight is pending at the time of dictation. Cord blood was collected for cord ABGs as well as routine cord blood sampling. Pitocin was initiated after delivery of the infant to assist with delivery of the placenta which was delivered spontaneously, Schultze intact with 3 vessels. Upon inspection of the pelvis and perineum, there were no periurethral, vaginal sidewall, cervical, or rectal lacerations. There was a second-degree perineal laceration and a right labial laceration that required a suture for hemostasis. She had excellent analgesia with her epidural. There was a [id number] suture placed in the right labia for hemostasis and then a running lock suture of 3-0 Caprosyn reapproximated the vaginal mucosa continuing with a deep running suture of the same for the perineum, and a subcuticular suture of the same for the skin. Final sponge, needle, and instrument count were correct. There were no known complications. Mother and remained in LDRP in good condition. ITALIA MONTAGUE /[id number]
--- NOTE | 2016-08-02 06:26 | OR ---
SURGEON: Mallory Cuevas M.D. DATE OF PROCEDURE: 07/30/2016 PREOPERATIVE DIAGNOSIS: hemorrhage. POSTOPERATIVE DIAGNOSIS: Hematoma of the rectovaginal septum. ANESTHESIA: General endotracheal. FLUIDS: 1500 mL crystalloid and 2 units packed red blood cells. PROCEDURE: Uterine curettage, evacuation of rectovaginal septum hematoma with establishment of hemostasis, opening and repair of a second-degree perineal laceration. COMPLICATIONS: None known. DISPOSITION: Stable to recovery. BRIEF HISTORY: This is a 26-year-old female. She is G1, P0. At approximately 12:15 p.m., she had an uncomplicated vaginal delivery with a firm fundus and minimal bleeding. EBL was less than 300 mL. Immediately, , she was stable and did well. At approximately 3 p.m., I was notified by Labor and Delivery that her bladder was over distended and she was on her way to the bathroom and had fainted. Following this, she had significant increase of consistent bleeding. She received Methergine IM. She received a 2nd bag of Pitocin. The uterus was firm. She continued to have bleeding and at 3:30 p.m., I came to Labor and delivery to evaluate the patient. I performed fundal massage and bimanual examination. There were minimal clots in either the vagina or the uterus, but a steady flow of bright red blood was noted. Immediately, following my exam, the patient appeared to have a vagal reaction and fainted. She was responsive again within 30 seconds and she received a 2nd large-bore IV, 2 units of red blood cells were typed and screened, typed and crossmatched and the labs were drawn. Anesthesia was notified and she was transferred to the operating room. The patient was awake and alert and able to sign a consent for exam under anesthesia, uterine curettage, and surgery as indicated to correct hemorrhage. The patient was transferred to the operating room. SCDs were in place. She had received 2 g of Ancef IV and establishment of adequate general endotracheal anesthesia was performed by Anesthesia. DESCRIPTION OF PROCEDURE: With the patient in dorsal lithotomy position, under adequate general endotracheal anesthesia, the perineum and vagina were prepped with Betadine and draped in usual fashion for vaginal surgery. The bladder had been drained with a straight catheter and an appropriate time-out was held. Bimanual examination revealed the uterus to be fairly firm with no clots in the vagina or the lower uterine segment. The speculum was placed into the vagina. The anterior lip of the cervix was grasped with a ring forceps and a banjo curette was utilized to perform uterine curettage. There was a good cry felt on all surfaces. There was minimal bleeding from the uterus. Therefore, the ring forceps was released and the vaginal retractors were utilized to inspect the vagina. Posteriorly, there was noted to be a lump in the vagina with a small transverse defect in the vagina where blood was noted to be clotted. Inspection of this revealed approximately a 5 cm hematoma, which had ruptured through the posterior vaginal wall, approximately, 5 cm cephalad from the vaginal introitus, in order to gain better access and also to complete inspection, I did remove the sutures from the second-degree perineal laceration that had been repaired. There was no connection between any of the perineal lacerations and the area of hematoma and it was apparent that the hematoma had likely spontaneously ruptured as the defect was completely transverse and linear. The hematoma was evacuated. A finger was placed into the rectum and there was no rectal defect. The tissue just above the rectum in the rectovaginal septum was reapproximated using a running lock suture of 0 Polysorb. A 2nd layer was placed of a running lock suture of 0 Polysorb and then the vaginal mucosa was closed with a running lock suture of 0 Polysorb. The inspection of the rectum revealed no suture placed in the rectum and there was no thickness between the rectovaginal septum to suggest recollection of the vaginal hematoma. The open second-degree laceration was then repaired in the usual fashion. I used a running lock suture of the 0 Polysorb for the vaginal mucosa and then switched to a 3-0 Caprosyn for the deep perineal tissue and the subcuticular sutures. The vagina was then packed with vaginal packing. Final sponge, needle, and instrument counts were reported as correct. There were no known complications. The patient was transferred to recovery in good condition. ITALIA MONTAGUE /[id number]
== END 2016-08-01 11:15 | disposition home or self-care (01) | DRG 774 ==
LOC: MW.OBCHECK 21:44 → MW.OB 21:45 → OBSVTOIN 07-30 12:01 → MW.OB 07-30 12:01 → MW.OBCHECK 07-30 12:10 → MW.OB 07-30 18:00
PROVIDERS: ADMIT Obstetrics & Gynecology; ATTEND Obstetrics & Gynecology
PROC: 10E0XZZ Delivery of Products of Conception, External Approach (ICD-10-PCS; principal; 2016-07-30)
PROC: 0KQM0ZZ Repair Perineum Muscle, Open Approach (ICD-10-PCS; 2016-07-30)
PROC: 0U9G7ZZ Drainage of Vagina, Via Natural or Artificial Opening (ICD-10-PCS; 2016-07-30)
PROC: 3E0P7GC Introduction of Other Therapeutic Substance into Female Reproductive, Via Natural or Artificial Opening (ICD-10-PCS; 2016-07-30)
PROC: 30233N1 Transfusion of Nonautologous Red Blood Cells into Peripheral Vein, Percutaneous Approach (ICD-10-PCS; 2016-07-30)
DX: O48.0 Post-term pregnancy (principal); O72.1 Other immediate postpartum hemorrhage; R55 Syncope and collapse; Z3A.40 40 weeks gestation of pregnancy; Z37.0 Single live birth
CPT/HCPCS: 00940; 01967; 36415; 36430; 59025; 85014; 85018; 85027; 85384; 85610; 85730; 86850; 86900; 86901; 86920; 86921; 86922; A9270-GY; J0290; J0595; J0690; J1940; J2210; J2250; J2370; J2405; J2704; J2795; J3010; J7030; J7050; J7120; P9016